=== PATIENT | male | born 1950 ===

== ENCOUNTER 2025-08-05 10:52 | Day surgery (SDC) | payer OTHER ==
[~2025-08-05] VITALS: Ht 182.9 cm; Wt 87.3 kg
[~2025-08-05 10:52] MED LIST: Balanced Salt Epinephrine Irrigation Solution 500 mL IR SCH; Moxifloxacin HCL 0.5 MG/0.1 ML 0.4MLSYR RIGHTEYE SCH; NS 500 ML IV ONE; PHENYLEPHRINE\\TROPICAMIDE\\TETRACAINE OPHTHALMIC DILATING SOLN RIGHTEYE PRN; Povidone-Iodine 450 DROP/30 ML Solution ONE; Povidone-Iodine 450 DROP/30 ML Solution RIGHTEYE SCH; Tetracaine HCl/Pf 0.5% Opth Soln 4 ml ONE
[2025-08-05] MEDS ORDERED: DILT120 PO (11:41)
[2025-08-05] MEDS ORDERED: ZYRTEC10 M3 PO (11:41)
[2025-08-05] MEDS ORDERED: METO50ER PO (11:42)
[2025-08-05] MEDS ORDERED: [UNRECOGNIZED DRUG - OTHER] (11:42)
[2025-08-05] MEDS ORDERED: PSEU120ER PO (11:43)
[2025-08-05] MEDS ORDERED: ELIQUIS5 M2 PO (11:44)
[2025-08-05] MEDS ORDERED: ZOCOR20 MG PO (11:45)
[2025-08-05] MEDS ORDERED: LISI20 PO (11:46)
[2025-08-05] MEDS ORDERED: Flomax0.4 MG PO (11:46)
[2025-08-05] MEDS ORDERED: THERA-D2000 UNIT PO (11:47)
[2025-08-05] MEDS ORDERED: B-1100 M2 PO (11:47)
[2025-08-05] MEDS ORDERED: FOLI1 PO (11:47)
[2025-08-05] MEDS ORDERED: MULVITA PO (11:48)
[2025-08-05] MEDS ORDERED: MAGNESIUM OXID500 MG PO (11:48)
[2025-08-05] MEDS ORDERED: NS 500 ML IV ONE (11:57)
[2025-08-05] MEDS ORDERED: Midazolam HCl 1MG / ML 2ML Vial ONE (12:03)
[2025-08-05 12:33] VITALS: BP 128/73
== END 2025-08-05 12:48 | disposition home or self-care (01) ==
LOC: ORSCSDS 10:52
PROVIDERS: Student in an Organized Health Care Education/Training Program
PROC: 08RJ3JZ Replacement of Right Lens with Synthetic Substitute, Percutaneous Approach (ICD-10-PCS; principal; 2025-08-05 12:30)
DX: H25.813 Combined forms of age-related cataract, bilateral (principal); H21.81 Floppy iris syndrome; H52.201 Unspecified astigmatism, right eye; I10 Essential (primary) hypertension; I48.91 Unspecified atrial fibrillation; Z86.73 Personal history of transient ischemic attack (TIA), and cerebral infarction without residual deficits; Z79.01 Long term (current) use of anticoagulants; Z79.899 Other long term (current) drug therapy; Z87.891 Personal history of nicotine dependence
CPT/HCPCS: J2250; J7040; V2632

== ENCOUNTER 2025-08-12 07:27 | Day surgery (SDC) | payer OTHER ==
[~2025-08-12] VITALS: Ht 182.9 cm; Wt 87.0 kg
[~2025-08-12 07:27] MED LIST changes: +B-1100 M2 PO; +DILT120 PO; +ELIQUIS5 M2 PO; +FOLI1 PO; +Flomax0.4 MG PO; +LISI20 PO; +MAGNESIUM OXID500 MG PO; +METO50ER PO; +MULVITA PO; +Moxifloxacin HCL 0.5 MG/0.1 ML 0.4MLSYR LEFTEYE SCH; -Moxifloxacin HCL 0.5 MG/0.1 ML 0.4MLSYR RIGHTEYE SCH; +Ondansetron 4 MG SoluTab MM PRN; +PHENYLEPHRINE\\TROPICAMIDE\\TETRACAINE OPHTHALMIC DILATING SOLN LEFTEYE PRN; -PHENYLEPHRINE\\TROPICAMIDE\\TETRACAINE OPHTHALMIC DILATING SOLN RIGHTEYE PRN; +PSEU120ER PO; +Povidone-Iodine 450 DROP/30 ML Solution LEFTEYE SCH; -Povidone-Iodine 450 DROP/30 ML Solution RIGHTEYE SCH; +THERA-D2000 UNIT PO; +ZOCOR20 MG PO; +ZYRTEC10 M3 PO; +[UNRECOGNIZED DRUG - OTHER]; +diazePAM 5 MG,diazePAM 2 MG PO SCH
[2025-08-12] MEDS ORDERED: NS 500 ML IV ONE (08:29)
[2025-08-12] MEDS ORDERED: Midazolam HCl 1MG / ML 2ML Vial ONE (08:46)
[2025-08-12] MEDS ORDERED: Tetracaine HCl 0.5% Opth Soln 15 ml LEFTEYE ONE (08:50)
[2025-08-12 09:10] VITALS: BP 113/73
== END 2025-08-12 09:29 | disposition home or self-care (01) ==
LOC: ORSCSDS 07:27
PROVIDERS: Student in an Organized Health Care Education/Training Program
PROC: 08RK3JZ Replacement of Left Lens with Synthetic Substitute, Percutaneous Approach (ICD-10-PCS; principal; 2025-08-12 09:00)
DX: H25.812 Combined forms of age-related cataract, left eye (principal); H21.81 Floppy iris syndrome; Z96.1 Presence of intraocular lens; I48.91 Unspecified atrial fibrillation; I10 Essential (primary) hypertension; E78.5 Hyperlipidemia, unspecified; Z86.73 Personal history of transient ischemic attack (TIA), and cerebral infarction without residual deficits; Z79.01 Long term (current) use of anticoagulants; Z79.899 Other long term (current) drug therapy; Z87.891 Personal history of nicotine dependence
CPT/HCPCS: J2250; J7040; V2632